=== PATIENT | female | born 1995 | race Caucasian/White ===

== ENCOUNTER 2020-02-06 09:35 | Emergency (ER) | payer BC, SELFPAY ==
[2020-02-06] VITALS (23 sets, daily range): BP systolic 101–123; BP diastolic 58–87; PULSE 60–83; RESP 14–34; TEMP 36.5; O2SAT 95–99
[2020-02-06] MEDS: LORazepam (*CRX) 1 MG TABLET PO (10:56)
[2020-02-06] MEDS: ONDANSETRON HCL ODT 4 MG TABLET PO (10:56)
[2020-02-06 11:28] LABS: Add Urine Microscopic? YES; Appearance Urine Clear (Clear); Bacteria Urine Trace /hpf; Bilirubin Urine Negative (Negative); Blood Urine 2+ (Negative); Color Urine Straw (Yellow); Glucose Urine UA Negative (Negative); Ketones Urine Trace mg/dL (Negative); Leukocyte Esterase Ur Negative LEU/UL (Negative); Mucus Urine Rare /lpf; Nitrate Urine Negative (Negative); Protein Urine Negative (Negative); RBC Urine 0-2 /hpf (0-2); Specific Grav Ur 1.006 (1.001-1.035); Squamous Epithelial Cell Urine Many /hpf (Few); Urobilinogen Urine Negative mg/dL (<2.0); WBC Urine 0-3 /hpf
[2020-02-06] MEDS: PANTOPRAZOLE SODIUM IV 40 MG VIAL IV PUSH (11:34)
[2020-02-06] MEDS: SODIUM CHLORIDE 0.9% IV 1,000 ML 999 ML IV CONT (11:34)
[2020-02-06 11:35] LABS: Basophils Percent Auto 0.3 % (0.2-1.2); Eosinophils Percent Auto 0.1 % (0-4.4); Hematocrit 41.1 % (37.0-47.0); Hemoglobin 13.9 g/dL (12.0-15.0); Immature Granulocyte Absolute 0.03 K/mm3 (0.00-0.031); Immature Granulocyte Percent A 0.3 % (0-0.5); Lymphocytes Absolute Auto 0.85 K/mm3 (0.9-3.2); Lymphocytes Percent Auto 8.7 % (18.3-44.2); Mean Corpuscular HGB Conc 33.8 g/dl (32-36); Mean Corpuscular Hemoglobin 29.6 pg (26-34); Mean Corpuscular Volume 87.6 fl (80-100); Mean Platelet Volume 12.9 fl (7.4-10.4); Monocytes Absolute Auto 0.2 K/mm3 (0.1-0.6); Neutrophils Absolute Auto 8.7 K/mm3 (1.3-6.7); Neutrophils Percent Auto 88.6 % (45.5-73.1); Platelet Count Result 168 k/mm3 (150-375); Red Blood Count 4.69 M/mm3 (4.2-5.4); Red Cell Distribution Width 12.6 % (11.5-14.5); White Blood Count 9.8 K/mm3 (4.5-10.0)
[2020-02-06 11:45] LABS: Alanine Aminotransferase 13 U/L (4-35); Albumin Level 4.3 g/dL (3.5-5.1); Alkaline Phosphatase 42 U/L (38-126); Anion Gap 9 mmol/L (8-16); Aspartate Amino Transferase 18 U/L (14-36); Bilirubin,Total 0.9 mg/dL (0.2-1.3); Blood Urea Nitrogen 16 mg/dL (7-17); Calcium 9.4 mg/dL (8.4-10.2); Carbon Dioxide 25 mmol/L (22-30); Chloride 105 mmol/L (98-107); Estimated Glomerular Filt Rate > 60; Glucose 106 mg/dL (65-105); Lipase 34 U/L (23-300); Potassium 3.5 mmol/L (3.4-5.0); Sodium 139 mmol/L (137-145)
--- NOTE | 2020-02-06 12:10 | PC.NURSE ---
pharmacy called for Levsin.
[2020-02-06] MEDS: HYOSCYAMINE SULFATE 0.125 MG TABLET PO (12:21)
--- NOTE | 2020-02-06 13:27 | ED.GENADULT ---
HPI - General Adult General Chief complaint: Anxiety Stated complaint: anxiety Time Seen by Provider: 02/06/20 10:08 Source: patient Mode of arrival: ambulatory Limitations: no limitations History of Present Illness HPI narrative: Patient is a 24-year-old female who presents to emergency department for evaluation of anxiety and GI upset that began today notes cramping with nausea patient has had similar occurrences in the past with history of anxiety and is attempting to get back into her therapist and began taking anxiety medication again. Patient does note stressors but denies any suicidal or homicidal ideation patient gets bouts of GI upset that are intermittent but denies rectal bleeding melena urinary symptoms or vaginal complaints or diarrhea Related Data Allergies Allergy/AdvReac Type Severity Reaction Status Date / Time No Known Allergies Allergy Verified 02/06/20 09:43 Review of Systems Review of Systems: All systems reviewed & are unremarkable except as noted in HPI and below PMFSH Past Medical History Medical History Anxiety Social History Social History (Updated 02/06/20 @ 13:28 by Bob Sosa PA-C) Smoking status: Current every day smoker Gender identity (if verbalized by the patient): Female Exam Narrative: Exam Narrative: GENERAL: Well-appearing, well-nourished, uncomfortable and in no acute distress. HEAD: Normocephalic, atraumatic. EYES: PERRLA and EOMI. ENT: Nares clear, no rhinorrhea or epistaxis. Mucous membranes moist. CHEST: Clear to auscultation. No respiratory distress. No wheezes rales or rhonchi HEART: Regular rate and rhythm. No murmur heard. Normal peripheral pulses. ABDOMEN: Soft, nontender, nondistended EXTREMITIES: Normal range of motion. No edema. SKIN: Warm, dry, no rash. NEURO: No focal deficits. Alert and oriented x3. PSYCH: Normal mood and affect. Course Course Emergency Course: Patient was evaluated and treated in the emergency department feeling much better at this time tolerating p.o. intake felt appropriate for outpatient reevaluation agreeing to follow with primary care and her therapist Vital Signs Vital signs: Vital Signs Temperature 97.7 F 02/06/20 09:40 Pulse Rate 73 02/06/20 09:40 Respiratory Rate 20 02/06/20 09:40 Blood Pressure 123/87 02/06/20 09:40 Pulse Oximetry 97 02/06/20 09:40 Temperature 97.7 F 02/06/20 09:40 Pulse Rate 64 02/06/20 13:02 Respiratory Rate 19 02/06/20 13:02 Blood Pressure 105/58 L 02/06/20 12:46 Pulse Oximetry 96 02/06/20 13:02 Medical Decision Making MDM Narrative Medical decision making narrative: Patient with likely GI upset potentially related to stress and anxiety but felt appropriate for outpatient reevaluation given her improvement with medications and her blood work findings and nontender exam Vital Signs Vital Signs: Vital Signs Temperature 97.7 F 02/06/20 09:40 Pulse Rate 73 02/06/20 09:40 Respiratory Rate 20 02/06/20 09:40 Blood Pressure 123/87 02/06/20 09:40 Pulse Oximetry 97 02/06/20 09:40 Temperature 97.7 F 02/06/20 09:40 Pulse Rate 64 02/06/20 13:02 Respiratory Rate 19 02/06/20 13:02 Blood Pressure 105/58 L 02/06/20 12:46 Pulse Oximetry 96 02/06/20 13:02 Lab Data Result diagrams: 02/06/20 11:26 02/06/20 11:26 Labs: Lab Results 02/06/20 02/06/20 02/06/20 Range/Units 11:13 11:26 11:26 WBC 9.8 (4.5-10.0) K/mm3 RBC 4.69 (4.2-5.4) M/mm3 Hgb 13.9 (12.0-15.0) g/dL Hct 41.1 (37.0-47.0) % MCV 87.6 (80-100) fl MCH 29.6 (26-34) pg MCHC 33.8 (32-36) g/dl RDW 12.6 (11.5-14.5) % Plt Count 168 (150-375) k/mm3 MPV 12.9 H (7.4-10.4) fl Immature Gran % (Auto) 0.3 (0-0.5) % Neut % (Auto) 88.6 H (45.5-73.1) % Lymph % (Auto) 8.7 L (18.3-44.2) % Yell % (Auto) 2.0 L (2.6-8.5) % Eos % (Au
== END 2020-02-06 14:16 | disposition home or self-care (01) ==
PROVIDERS: Emergency Medicine Emergency Medical Services; Emergency Provider Emergency Medicine; PCP Physician Assistant
DX: R10.9 Unspecified abdominal pain (principal); F41.9 Anxiety disorder, unspecified; F17.200 Nicotine dependence, unspecified, uncomplicated
CPT/HCPCS: 36415; 80053; 81001; 81025; 83690; 85025; 96361; 96374; 99284; A9270; C9113; J7030